=== PATIENT | female | born 2000 | race Caucasian/White ===

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

== ENCOUNTER 2018-08-28 08:14 | Emergency (ER) | payer OTHER, SELFPAY ==
[2018-08-28 08:16] VITALS: BP 145/86; PULSE 84; RESP 17; TEMP 36.7; O2SAT 98; BMI 49.8
[2018-08-28] MEDS: Morphine 4 MG/ML Syringe IV (08:42)
[2018-08-28] MEDS: Ondansetron 4 MG/2 ML Vial IV (08:42)
[2018-08-28 08:56] LABS: D-Dimer Quantitative (DVT/PE) < 0.27 FEU/ug/m (0.27-0.49)
--- NOTE | 2018-08-28 08:59 | ED.DCSUM_ITS ---
- ER Visit Summary Date of Service: 08/28/18 Chief Complaint: [Back pain] History of Present Illness: The patient is a 18 F [presents the emergency department with complaint of upper back pain that started this morning. Patient states she noticed it when she woke up. Patient states the pain is worse with movement and with breathing. She denies recent travel or surgery. She denies any fever or cough. Denies any trauma to her back. She denies lifting anything that may have caused her to injure her back. She does not use control and is not on hormone replacement. She does have a history of PCOS. Patient also has had partial thyroidectomy. Patient is not had discomfort like this before. She denies any neck pain. Denies any pain radiating into her arms. She denies any abdominal pain. Patient currently rates the pain an 8 out of 10.] Physical Examination: [HEENT-PERRLA, EOMI. Cranial nerves II through XII grossly intact. TMs clear. Mucous membranes moist. No adenopathy. Cardiovascular-regular rate and rhythm without murmur or ectopy Lungs-clear to auscultation, chest wall stable without crepitus or subcu emphysema Abdomen-normoactive bowel sounds, soft, nontender, no rebound or rigidity, no peritoneal signs. Back exam-patient does have tenderness palpation over the right trapezius and right upper thoracic paraspinal musculature that seems to reproduce her pain. Patient has no tenderness over the thoracic or lumbar spine. Extremities-intact ?4, normal range of motion, normal pulses, atraumatic] Test Results: [D-dimer was normal. Chest x-ray is unremarkable on my interpretation and awaiting official report from radiology.] Emergency Department Course and Treatment: [Patient was medicated with morphine and Zofran and she had good pain relief.] Treatment Plan: [Patient will be given a prescription for Naprosyn, Flexeril, and a few [place] for severe pain. I suspect likely muscular etiology.] Disposition: [Discharged home in stable condition. Patient advised to follow-up with primary care physician 5 to 7 days. Patient to return if worsening pain, fever, increasing shortness of breath, or conditions worsen anyway.] Impression: [Atraumatic upper back pain] This note was generated with [employer] software. It may contain incorrect words, spelling, and punctuation that were not noted in review of the chart prior to signing ED Disposition - Plan for ED Patient: Referrals: Angel Devine DO [Primary Care Provider] -
--- NOTE | 2018-08-28 09:00 | RAD_ITS ---
STUDY: X-RAY CHEST REASON FOR EXAM: Female, 18 years old. Right anterior chest pain TECHNIQUE: PA and lateral views of the chest. COMPARISON: 07/01/2016 FINDINGS: The lungs are clear and expanded. There is no demonstrated pleural abnormality. Normal size heart. Normal mediastinum and ruth. Normal visualized pulmonary arteries. Normal visualized aortic arch and descending thoracic aorta. Normal visualized thoracic spine. Normal visualized ribs, clavicles, and shoulders. There is no demonstrated abnormality of the visualized soft tissue structures of the upper abdomen. RAD/Chest PA and Lateral IMPRESSION: Normal x-ray examination of the chest. Electronically Signed: Trell Chairez DO at 9:24 EDT Tel , Service support ,
--- NOTE | 2018-08-28 09:15 | DCINST.ED_ITS ---
ED Disposition - Plan for ED Patient: Instructions: ED Neck Back Pain General Prescriptions: Hydrocodone Bitart/Apap 5-325 [[place] 5MG-325MG] 1 tab PO Q4H PRN PRN 2 Days #10 tab PRN Reason: Pain Naproxen [Naprosyn] 500 mg PO BID PRN #20 tab cycloBENZAPRine HCl [Flexeril] 10 mg PO TID PRN #20 tab PRN Reason: Muscle Spasm Referrals: Angel Devine DO [Primary Care Provider] - 5-7 Days
[2018-08-28 09:27] VITALS: BP 115/80; PULSE 82; RESP 18; O2SAT 97
== END 2018-08-28 09:28 | disposition home or self-care (01) ==
LOC: ED 08:48
PROVIDERS: Emergency Provider Emergency Medicine; Family Provider Preventive Medicine Occupational Medicine; PCP Preventive Medicine Occupational Medicine
DX: M54.9 Dorsalgia, unspecified (principal); E28.2 Polycystic ovarian syndrome; Z90.49 Acquired absence of other specified parts of digestive tract
CPT/HCPCS: 71046; 85379; 96374; 96375; 99284; A4216; J2405

== ENCOUNTER 2018-12-04 20:30 | Emergency (ER) | payer OTHER, SELFPAY ==
[2018-12-04 20:31] VITALS: BP 146/94; PULSE 89; RESP 16; TEMP 36.4; O2SAT 99; BMI 49.6
--- NOTE | 2018-12-04 21:09 | ED.VISSUMM ---
- ER Visit Summary Date of Service: 12/04/18 Chief Complaint: High blood pressure, dizziness, lightheadedness, and headache History of Present Illness: The patient is a 18 F who presents with dizziness, lightheadedness, and headache for the past 2 weeks. Patient checked her blood pressure at home earlier tonight and it was 172/112. Patient states her headache is over the frontal area. Patient describes the pain as sharp. Patient states she feels lightheaded and dizzy at times. Patient denies any chest pain or shortness of breath. Patient does admit to some nausea but denies any vomiting. Patient states nothing makes her headache better or worse. Physical Examination: Vital signs are stable. Patient is afebrile. Patient is in no acute distress. Patient is normotensive here in the emergency department. Pupils are equal, round, and reactive to light bilaterally. Extraocular muscles are intact. Funduscopic examination was benign. Cranial nerves II through XII are intact. Strength is 5/5 bilateral knee upper and lower extremity's. There are no sensory deficits noted. Oral mucosa is pink and moist. Neck is supple. Trachea is midline. There is no JVD noted. Heart was regular rate and rhythm. Lungs are clear and equal bilaterally. Abdomen is soft and nontender. Test Results: CBC and basic metabolic profile were obtained and were essentially within normal limits. Emergency Department Course and Treatment: Patient was given Compazine and Benadryl here. Patient states her headache was improved. Patient was advised of her results. Patient was instructed to continue to monitor her blood pressure. Patient was instructed to follow-up with her primary care physician in 5 to 7 days. Patient and her family understood and were agreeable with the plan. All questions were answered. Disposition: Discharge home Impression: Headache This note was generated with [employer] software. It may contain incorrect words, spelling, and punctuation that were not noted in review of the chart prior to signing ED Disposition - Plan for ED Patient: Disposition: Home or Assisted Living Diagnosis: Headache Instructions: HEADACHE, Unspecified Referrals: Angel Devine DO [Primary Care Provider] - 5-7 Days
[2018-12-04] MEDS: proCHLORPERazine 10 MG/2 ML Vial IV (21:16)
[2018-12-04] MEDS: DiphenhydrAMINE 50 MG/ML Syringe 25 MG IV (21:16)
[2018-12-04 21:18] LABS: Absolute Lymphocyte Count 2.38 X10^3/uL (0.83-4.51); Absolute Neutrophil Count 9.6 X10^3/uL (2.0-7.7); Basophil# 0.06 X10^3/uL; Basophil% 0.5 % (0-1); Eosinophil# 0.15 X10^3/uL; Eosinophils% 1.1 % (0-5); Hematocrit 42.8 % (37-47); Hemoglobin 14.2 g/dL (12.0-15.0); Lymphocyte # 2.38 X10^3/ul (4.0); Lymphocyte % 18.2 % (19-41); Mean Corp Hgb Conc 33.2 g/dL (32-36); Mean Corpuscular Hgb 28.5 pg (27.0-32.0); Mean Corpuscular Volume 85.9 fL (81-99); Mean Platelet Vol. 12.3 fl (6.2-12.0); Monocyte# 0.78 X10^3/uL; NRBC Flagged by Analyzer 0 % (0-5); Neutrophil # 9.61 X10^3/uL (2.7-7.7); Neutrophil % 73.6 % (47-70); Platelet Count 274 K/mm3 (150-450); RBC Distribution Width CV 12.9 % (11.6-14.6); Red Blood Count 4.98 M/mm3 (4.2-5.4); White Blood Count 13.1 K/mm3 (4.4-11.0)
[2018-12-04 21:30] LABS: Anion Gap 5 (5-15); BUN 9 mg/dL (7-18); BUN/Creat Ratio 14.2 RATIO (10-20); Calcium,Total 9.1 mg/dL (8.5-10.1); Chloride 110 mmol/L (98-107); Creatinine, Serum 0.63 mg/dL (0.55-1.02); EST Glomerular Filtration Rate 127 mL/min (>60); Est Glom Filt Rate - Afr Amer 153 mL/min (>60); Estimated Creatinine Clearance 112.66 ml/min; Glucose 95 mg/dL (74-106); Potassium 3.6 mmol/L (3.5-5.1); Sodium Level 142 mmol/L (136-145)
[2018-12-04 21:46] VITALS: BP 136/100; PULSE 80; RESP 16; O2SAT 100
== END 2018-12-04 21:47 | disposition home or self-care (01) ==
PROVIDERS: Emergency Provider Emergency Medicine; Family Provider Preventive Medicine Occupational Medicine; PCP Preventive Medicine Occupational Medicine
DX: R51 Headache (principal); R42 Dizziness and giddiness; R11.0 Nausea; E66.9 Obesity, unspecified; E28.2 Polycystic ovarian syndrome
CPT/HCPCS: 80048; 85025; 96374; 96375; 99283; A4216

== ENCOUNTER → 2020-11-07 08:59 | Outpatient (CLI) | payer OTHER, SELFPAY | PROVIDERS: PCP Preventive Medicine Occupational Medicine; Referring Provider Preventive Medicine Occupational Medicine; Visit Provider Preventive Medicine Occupational Medicine | DX: R05 Cough (principal); J98.8 Other specified respiratory disorders | CPT/HCPCS: 87635; C9803; U0005; U0003 ==

== ENCOUNTER 2024-11-28 11:41 | Emergency (ER) | payer SELFPAY ==
[2024-11-28 11:42] VITALS: BP 126/97; PULSE 112; RESP 18; TEMP 36.5; O2SAT 100; BMI 64.3
[2024-11-28 12:26] VITALS: BP 129/94; PULSE 105; RESP 15; O2SAT 98
--- NOTE | 2024-11-28 12:59 | EKG12_ITS ---
Test Reason : Blood Pressure : */* mmHG Vent. Rate : 107 BPM Atrial Rate : 107 BPM P-R Int : 178 ms QRS Dur : 74 ms QT Int : 326 ms P-R-T Axes : 23 41 12 degrees QTcB Int : 435 ms Sinus tachycardia Otherwise normal ECG Confirmed by Ramo Dc ([id number]), editorial clerk TAHMINA DUNCAN ([id number]) on 11/29/2024 11:56:13 AM Referred By: Confirmed By: Ramo Dc
--- NOTE | 2024-11-28 13:18 | ED.VIS.CHEST ---
HPI History of Present Illness Chief Complaint: Palpitations Informant: patient Narrative Narrative: Patient 24-year-old female history of anxiety and PCOS presenting with palpitations and chest discomfort. Patient states arrival she was at work just watching a coworker when she developed sensation of her heart racing in her chest. She states she gets these episodes quite frequently but normally they only last for 5 to 10 minutes. She states it lasted for 2 hours. It stopped when she got in her car and decided come to the ER for evaluation. She states with these episodes is common for her to feel lightheaded, dizzy and hot or clammy or like she is going to pass out. She had that today but she also felt a tightness in the center of her chest that radiated across her chest. She denies any acute complaints at this time and came in for further evaluation. She states she has had workup in the past for palpitations and had 2 Holter monitors however they never captured any episodes and did not show any acute abnormalities. She denies any recent illnesses, fever or chills. Has some chronic swelling of her legs but denies any change in that. Denies any significant weight change. Denies any night sweats, nausea or vomiting. Denies any fever. Denies any shortness of breath or difficulty breathing. Does take sertraline and has a as needed lorazepam prescription which she did take this morning as well. [facility] Medical History PCOS (polycystic ovarian syndrome) Asthma Anxiety Home Medications ?Medication ?Instructions ?Recorded ?Last Taken ?Type sertraline 100 mg tablet 100 mg PO DAILY 12/04/18 Unknown History Allergy/AdvReac Type Severity Reaction Status Date / Time sumatriptan AdvReac Other Verified 11/28/24 11:44 Social History Smoking Status: Never smoker ROS ROS ED Constitutional Constitutional ED: Reports sweats; Denies chills or fever(s) ENT ENT ED: Denies rhinorrhea or sore throat Cardiovascular Cardiovascular: Reports as per HPI, chest pain, palpitations and racing heartbeat Respiratory/Chest Respiratory/Chest: Denies cough or dyspnea Gastrointestinal Gastrointestinal: Denies abdominal pain, nausea or vomiting Musculoskeletal Musculoskeletal: Denies back pain Integumentary Denies rash Neurologic Neurologic: Denies headache(s), paresthesias or weakness Psychiatric Psychiatric: Reports anxiety; Denies depression Hematologic/Lymphatic Hematologic/Lymphatic: Denies easy bleeding or easy bruising EXAM Physical Exam Const Vital Signs: 11/28/24 11:42 11/28/24 12:26 11/28/24 14:00 Temperature 97.7 F L Temperature Source Oral Pulse Rate 112 H 105 H 94 Respiratory Rate 18 15 18 Blood Pressure 126/97 H 129/94 H 130/64 H Blood Pressure Mean 106 105 86 Pulse Ox 100 98 98 Oxygen Delivery Method Room Air Room Air Room Air Positive well nourished and well developed General Appearance ED: well developed and NAD HEENT Reports moist mucous membranes Eyes PERRL Neck supple and no JVD Chest Wall inspection of chest normal and palpation of chest normal Resp normal respiratory effort Auscultation: diminished lung sounds bilateral lower; Negative for rales, rhonchi or wheezes Cardio regular rhythm and no murmurs Cardio Narrative: 2+ radial and PT pulses present Rate: tachycardic GI normal to inspection, nondistended, normoactive bowel sounds and soft to palpation Extremity normal to inspection Extremity Narrative: No pitting edema present General Extremety ED: Negative for edema General Extremity: Negative for edema Neuro oriented x3 Sensorium / Orientation: awake Motor Exam: general weakness Psych mental status grossly normal Skin no rashes or lesions noted and no wounds Heart Score History: Slightly/Non-Suspicious ECG: Normal Age: </= 45 years Risk Factors: 1 or 2 Risk Factors Troponin: >1 - <3 Normal Limit Score: 2 MDM MDM MDM Narrative Medical decision making narrative: Patient is evaluated for palpitations associated chest pressure. She is mildly tachycardic upon arrival but overall well-appearing. Has had the symptoms been ongoing but today was much more pronounced than prior episodes lasting longer and she associated chest pressure. Differential includes not limited to arrhythmia, symptomatic anemia, electrolyte derangement, pneumothorax, pulmonary emboli and electrolyte derangement as well as thyroid abnormality. EKG shows sinus tachycardia. Patient is in a leukocytosis of 12.3 which is not specific. No obvious source of infection is known she denies any infectious symptoms at this time including fever or chills. D-dimer is less than 0.27 and she is otherwise low risk for pulmonary emboli suspicion for PE. I do not think she requires CTA of the chest. Initial high-sensitivity troponin is minimally elevated at 45 however on repeat it is 37. EKG does not show ischemic changes and patient is now asymptomatic. Urinalysis consistent with menstrual contamination (patient currently on the end of her menstrual cycle). No ketones consistent with dehydration. TSH is normal low sufficient for thyroid dysfunction as a cause of her symptoms. Case is discussed with cardiology, Dr. Dc given her symptoms and minimally elevated but downtrending high-sensitivity troponin. He suspect she is probably having some type of arrhythmia possibly SVT and that is likely the cause of her symptoms. States that she needs a 30-day event monitor likely. No recommendation any medications at this time as we do not have a clear diagnosis yet. Patient is asymptomatic repeat evaluation. Heart rate is now below 100. She is ambulated and is asymptomatic. I did speak with her PCP, Dr. Slater, who states that she would be happy to see the patient in office this week and get this arranged as well as refer to cardiology. Patient is agreeable with plan of care. Patient given return precautions. Discharged home in stable condition. Lab Data Attestation: I reviewed the patient's lab results. Labs: Laboratory Results - last 24 hr 11/28/24 11/28/24 11/28/24 13:15 13:30 14:50 WBC 12.3 H RBC 5.18 Hgb 14.2 Hct 43.3 MCV 83.6 MCH 27.4 MCHC 32.8 RDW Std Deviation 41.8 RDW Coeff of Aster 13.8 Plt Count 290 MPV 12.6 H Immature Gran % (Auto) 0.700 Neut % (Auto) 75.3 H Lymph % (Auto) 16.5 L [place] % (Auto) 5.1 Eos % (Auto) 1.8 Baso % (Auto) 0.6 Absolute Neuts (auto) 9.3 H Absolute Lymphs (auto) 2.03 Nucleated RBC % 0 D-Dimer Quant (PE/DVT) < 0.27 L Sodium 140 Potassium 4.1 Chloride 106 Carbon Dioxide 24.0 Anion Gap 10 BUN 5 Creatinine 0.59 L Estim Creat Clear Calc 214.00 Est GFR (MDRD) Non-Af 128 BUN/Creatinine Ratio 9.3 L Glucose 101 H Calcium 8.8 Troponin T High Sens 45 H Troponin T Hi Sens 2 Hr 37 H NT pro BNP II 96 TSH 1.800 Urine Color SEE COMMENT BELOW Urine Clarity Cloudy Urine pH 6.0 Ur Specific [place] 1.010 Urine Protein 100 H Urine Glucose (UA) Normal Urine Ketones Negative Urine Occult Blood 250 H Urine Nitrite Negative Urine Bilirubin Negative Urine Urobilinogen Normal Ur Leukocyte Esterase 25 H Urine RBC > 100 SEEN Urine WBC 0 SEEN Ur Squamous Epith Cells 0-5 SEEN Urine Bacteria 0 SEEN Urine Mucus 0 SEEN Radiography Diagnostic Testing: Clinical Impression(s) from Imaging Studies Chest X-Ray 11/28/24 14:05 IMPRESSION: NO ACUTE FINDINGS. Reading Location: [place] [address] Rhythm Strip Rhythm Strip: Sinus Tach Rate: 107 EKG Initial EKG: Attestation: I personally reviewed and interpreted this EKG as follows: Interpretation: Sinus Tachycardia Comments: Sinus tachycardia rate 107 bpm Normal axis Normal intervals Normal ST segments Management Discussion w/another healthcare provider: Greenhouse Manager and PCP Discharge Plan Triage Chief Complaint: Palpitations ED Provider: Smita Cardoza Dx/Rx/DC Orders Clinical Impression: Palpitations, Pressure in chest Instructions: ED Heart Palpitations Prescriptions: No Action sertraline 100 MG tablet 100 mg PO DAILY Primary Care Provider: Nasra Slater Referrals: Nasra Slater, DO [Primary Care Provider] - Care Physician,No Primary [Non-Staff] - Activity Restrictions/Additional Instructions: Please call your family medicine office later today or tomorrow morning to arrange an appointment to be seen this week. They will arrange further workup for evaluation of your palpitations. We suspect you are having some type of cardio arrhythmia/abnormal heart rhythm that is causing your symptoms but it needs to be captured on some type of monitor in order to be fully diagnosed and for treatment plan. If you feel that you are worsening please return to the nearest emergency room. Print Language: Palestinian Disposition Disposition: Home, Self Care
[2024-11-28 13:31] LABS: Hematocrit 43.3 % (37-47); Hemoglobin 14.2 g/dL (12.0-15.0); Immature Granulocytes Count 0.090 X10^3/uL (0.0-0.0); Mean Corp Hgb Conc 32.8 g/dL (32-36); Mean Corpuscular Volume 83.6 fL (81-99); Mean Platelet Vol. 12.6 fl (6.2-12.0); NRBC Flagged by Analyzer 0 % (0-5); Platelet Count 290 K/mm3 (150-450); RBC Distribution Width CV 13.8 % (11.6-14.6); RBC Distribution Width SD 41.8 fl (35.1-43.9); Red Blood Count 5.18 M/mm3 (4.2-5.4); White Blood Count 12.3 K/mm3 (4.4-11.0)
[2024-11-28 13:36] LABS: Mucous, Urine 0 SEEN /hpf (<or=2+)
[2024-11-28 13:37] LABS: Glucose, Dipstick Normal (Normal); Ketone-Dipstick Negative (Negative); Leukocyte Esterase-Dipstick 25 /ul (Negative); Nitrite-Dipstick Negative (Negative); Occult Blood-Urine 250 /ul (Negative); Protein-Dipstick 100 mg/dl (Negative); Specific Gravity, Urine 1.010 (1.002-1.030); Urine Bilirubin Dipstick Negative (Negative)
[2024-11-28 13:42] LABS: Color, Urine SEE COMMENT BELOW (Yellow)
[2024-11-28 13:43] LABS: Red Blood Cells-Urine > 100 SEEN /hpf (0-5); Squamous Epithelial Cells - UA 0-5 SEEN /hpf (5-10)
[2024-11-28 13:46] LABS: D-Dimer Quantitative (DVT/PE) < 0.27 FEU/ug/m (0.27-0.49)
[2024-11-28 14:00] VITALS: BP 130/64; PULSE 94; RESP 18; O2SAT 98
[2024-11-28 14:03] LABS: Anion Gap 10 (5-15); BUN 5 mg/dL (4-19); BUN/Creat Ratio 9.3 RATIO (10-20); Calcium,Total 8.8 mg/dL (7.6-11.0); Carbon Dioxide 24.0 mmol/L (21.0-32.0); Chloride 106 mmol/L (98-108); Estimated Creatinine Clearance 214.00 ml/min (50-250); Glucose 101 mg/dL (70-99); Potassium 4.1 mmol/L (3.3-5.1); Pro- Brain NATRIURETIC PEPTIDE 96 pg/mL (<=450); Troponin T High Sensitivity 45 ng/L (<=14)
--- NOTE | 2024-11-28 14:05 | RAD_ITS ---
PROCEDURE: CHEST PA AND LATERAL 11/28/2024 REASON FOR EXAM: CHEST PAIN TECHNIQUE: Procedure Code: RADCXR Modality: DX Procedure: CHEST PA AND LATERAL COMPARISON: Prior study dated August 28, 2018. FINDINGS: Hardware: EKG electrodes are seen. Heart: The heart size is normal. Mediastinum: The mediastinal contour is unremarkable. Lungs: The lungs are clear. Bones: The bones are unremarkable. RAD/Chest PA and Lateral IMPRESSION: NO ACUTE FINDINGS. Reading Location: [place] [address]
--- NOTE | 2024-11-28 14:20 | CM.ED ---
Social work Reason for referral: no PCP/lack of insurance Referral source: case find SW identified patient's lack of PCP and insurance. SW entered patient's room, identifying self and role at [facility]. Patient accepted SW and SW's mother Lilly was bedside. Patient confirmed lacking insurance and accepted information on how to apply for Medicaid. Patient stated patient's PCP retired recently and patient was referred to Dr Slater at [facility], but patient stated not going there yet. Patient denied need for resources of [facility] Provider Directory or Radha Mandujano information at this time. Yue Lutz, CRABBER, ANESTHESIA DIRECTOR
[2024-11-28 15:17] LABS: Troponin T High Sens 2 HR 37 ng/L (<=14)
[2024-11-28 15:46] VITALS: BP 143/73; BP 151/50; BP 152/94; PULSE 100; PULSE 101; PULSE 110
[2024-11-28 16:00] VITALS: BP 151/50; PULSE 100; RESP 16; O2SAT 100
[2024-11-28 16:25] VITALS: BP 151/50; PULSE 100; RESP 16; TEMP 36.8; O2SAT 100
== END 2024-11-28 16:27 | disposition home or self-care (01) ==
PROVIDERS: Emergency Provider Emergency Medicine; PCP Student in an Organized Health Care Education/Training Program; Visit Provider Emergency Medicine
DX: R00.2 Palpitations (principal); R07.89 Other chest pain; F41.9 Anxiety disorder, unspecified; Z79.899 Other long term (current) drug therapy
CPT/HCPCS: 71046; 80048; 81001; 83880; 84443; 84484; 85025; 85379; 93005; 99285; A4216